=== PATIENT | female | born 1980 | race Caucasian/White ===

== ENCOUNTER 2017-06-22 10:55 | Inpatient (IN) | payer OTHER ==
[~2017-06-22] VITALS: Ht 172.7 cm; Wt 96.4 kg
[2017-06-29] MEDS: D5%-LACTATED RINGERS 1,000 ML IV SCH ×3 (05:21→21:21)
[2017-06-29] MEDS ORDERED: OXYTOCIN 30U/ 0.9% NaCL 500ML 500 ML IV ONE (05:21)
[2017-06-29] MEDS ORDERED: CALCIUM CARBONATE 500 MG TAB.CHEW PO PRN (05:30)
[2017-06-29] MEDS ORDERED: PLEASE ENTER ALLERGIES MC SCH ×2 (05:30)
[2017-06-29] MEDS ORDERED: FENTANYL PF 100 MCG/2ML IV PRN (05:30)
[2017-06-29] MEDS ORDERED: ONDANSETRON 2MG/ML, 2ML IVPush PRN (05:30)
[2017-06-29] MEDS ORDERED: FENTANYL PF 100 MCG/2ML IVPush PRN (05:30)
[2017-06-29 05:53] LABS: HEMATOCRIT 35.7 % (34.6-47.8); HEMOGLOBIN 12.1 g/dL (11.7-16.4); WHITE BLOOD COUNT 9.9 x10^3/uL (3.4-10)
[2017-06-29] MEDS ORDERED: LIDOCAINE 1%, 20ML ONE (07:58)
[2017-06-29] MEDS ORDERED: OXYTOCIN 30U/ 0.9% NaCL 500ML 500 ML ONE (07:59)
[2017-06-29] MEDS ORDERED: MISOPROSTOL 200 MCG TABLET ONE (07:59)
[2017-06-29] MEDS ORDERED: OXYTOCIN 30U/ 0.9% NaCL 500ML 500 ML IV PRN (08:08)
[2017-06-29] MEDS: LACTATED RINGERS 1,000 ML IV SCH ×3 (12:27→21:21)
[2017-06-29] MEDS ORDERED: ONDANSETRON 2MG/ML, 2ML ONE (21:14)
[2017-06-29] MEDS ORDERED: NEWBORN KIT ONE ×2 (22:48→22:49)
[2017-06-29] MEDS ORDERED: OXYTOCIN 10 UNITS/ML, 1ML ONE (23:34)
[2017-06-29] MEDS ORDERED: IBUPROFEN 600 MG TABLET ONE (23:59)
[2017-06-30] VITALS (7 sets, daily range): BP systolic 100–127; BP diastolic 55–70
[2017-06-30] MEDS: IBUPROFEN 600 MG TABLET PO PRN ×3 (00:03→15:08)
[2017-06-30] MEDS ORDERED: OXYTOCIN 30U/ 0.9% NaCL 500ML 500 ML ONE (00:05)
[2017-06-30] MEDS: OXYTOCIN 30U/ 0.9% NaCL 500ML 500 ML IV SCH ×3 (00:20→20:20)
[2017-06-30] MEDS ORDERED: OXYcodone/APAP 5/325MG TABLET PO PRN ×2 (00:30)
[2017-06-30] MEDS ORDERED: METHYLERGONOVINE 0.2 MG/ML IM PRN (00:30)
[2017-06-30] MEDS ORDERED: ONDANSETRON 2MG/ML, 2ML IV PRN (00:30)
[2017-06-30] MEDS ORDERED: ACETAMINOPHEN 325 MG TABLET PO PRN ×2 (00:30)
[2017-06-30] MEDS ORDERED: MISOPROSTOL 200 MCG TABLET PR ONE (01:00)
[2017-06-30] MEDS ORDERED: OXYTOCIN 10 UNITS/ML, 1ML IM ONE (01:00)
[2017-06-30] MEDS ORDERED: PRENATAL VIT/IRON/FA 1 EACH TABLET ONE (07:32)
[2017-06-30] MEDS: DOCUSATE 100 MG CAPSULE PO PRN (07:37)
[2017-06-30] MEDS: PRENATAL VIT/IRON/FA 1 EACH TABLET PO SCH (07:37)
[2017-06-30 07:40] LABS: HEMATOCRIT 35.4 % (34.6-47.8); WHITE BLOOD COUNT 21.4 x10^3/uL (3.4-10)
[2017-06-30 08:02] LABS: DIFF TOTAL CELLS COUNTED 100 CELL DIFF; VERIFY COUNTS? YES
[2017-06-30] MEDS ORDERED: IBUP-1222 PO (09:11)
[2017-06-30] MEDS ORDERED: OXYC-302 PO (09:11)
[2017-07-01] MEDS: DOCUSATE 100 MG CAPSULE PO PRN ×2 (01:12→07:57)
[2017-07-01] MEDS: IBUPROFEN 600 MG TABLET PO PRN ×3 (01:12→15:40)
[2017-07-01] MEDS: OXYTOCIN 30U/ 0.9% NaCL 500ML 500 ML IV SCH (06:20)
[2017-07-01] MEDS: PRENATAL VIT/IRON/FA 1 EACH TABLET PO SCH (07:57)
[2017-07-01 08:00] VITALS: BP 117/70
[2017-07-01] MEDS ORDERED: IBUP-1222 PO (09:25)
[2017-07-01] MEDS ORDERED: OXYC-302 PO (09:26)
== END 2017-07-01 16:45 | disposition home or self-care (01) | DRG 775 ==
LOC: LDIP 06-29 05:11 → 2NW 06-30 01:24
PROVIDERS: ADMIT Obstetrics & Gynecology; ATTEND Obstetrics & Gynecology
PROC: 10E0XZZ Delivery of Products of Conception, External Approach (ICD-10-PCS; principal; 2017-06-29)
PROC: 0KQM0ZZ Repair Perineum Muscle, Open Approach (ICD-10-PCS; 2017-06-29)
PROC: 3E0P3VZ Introduction of Hormone into Female Reproductive, Percutaneous Approach (ICD-10-PCS; 2017-06-29)
PROC: 10907ZC Drainage of Amniotic Fluid, Therapeutic from Products of Conception, Via Natural or Artificial Opening (ICD-10-PCS; 2017-06-29)
DX: O48.0 Post-term pregnancy (principal); O70.1 Second degree perineal laceration during delivery; Z3A.41 41 weeks gestation of pregnancy; Z37.0 Single live birth
CPT/HCPCS: 36415; 85025; 86850; 86900; J2405; J2590; J7120